=== PATIENT | female | born 1975 | race Caucasian/White ===

== ENCOUNTER 2024-07-06 11:41 | Emergency (ER) | payer OTHER, SELFPAY ==
[2024-07-06] MEDS ORDERED: diphenhydrAMINE 50 MG/ML VIAL ONE (12:11)
[2024-07-06] MEDS ORDERED: Ketorolac Tromethamine 30 MG (1 mL) VIAL ONE (12:12)
[2024-07-06] MEDS ORDERED: Sodium Chloride 0.9% 1,000 ML ONE (12:12)
[2024-07-06] MEDS ORDERED: Metoclopramide HCl 10 MG (2 mL) VIAL ONE (12:12)
[2024-07-06 12:31] LABS: Hematocrit 34.4 % (36.0-47.0); Hemoglobin 11.2 g/dL (12.0-16.0); Mean Corpuscular HGB CONC 32.5 g/dL (32.0-36.0); Mean Corpuscular Hemoglobin 29.9 pg (27.0-31.0); Mean Corpuscular Volume 92.1 fl (78.0-98.0); Platelet Count 162 10x3/uL (130-400); Red Blood Cell (RBC) Count 3.73 mill/uL (4.20-5.40); White Blood Cell (WBC) Count 5.9 10x3/uL (4.8-10.8)
[2024-07-06 12:32] LABS: Manual Diff?? YES
[2024-07-06 12:33] LABS: Band 1 % (5-11); Eosinophils 1 % (0-10); Lymphocytes 18 % (21-51); MDiff Complete? YES; Monocytes 9 % (0-10); Neutrophil 71 % (42-75); RBC Morph Comment Within Normal Limits
[2024-07-06 12:34] LABS: Platelet Adequacy Comment Appears Adequate
[2024-07-06 12:35] LABS: ALT (SGPT) 13 U/L (8-55); AST (SGOT) 16 U/L (5-34); Albumin 3.3 g/dL (3.5-5.0); Alkaline Phosphatase 62 U/L (40-110); Anion Gap 14 mmol/L (10-20); BUN (Urea Nitrogen) 14 mg/dL (7.0-18.7); Bilirubin, Total 0.7 mg/dL (0.2-1.2); Calc. Creatinine Clearance 0 mL/min (70-130); Calcium 8.5 mg/dL (7.8-10.44); Carbon Dioxide 24 mmol/L (22-29); Chloride 106 mmol/L (98-107); Estimated GFR 74; Globulin 2.6 g/dL (2.4-3.5); Glucose 89 mg/dL (70-105); Magnesium 1.7 mg/dL (1.6-2.6); Potassium 3.6 mmol/L (3.5-5.1); Protein, Total 5.9 g/dL (6.0-8.3); Sodium 140 mmol/L (136-145)
[2024-07-06 12:56] LABS: Bilirubin Negative (Negative); Blood, Urine Negative (Negative); Clarity Clear (Clear); Glucose, Urine (Dipstick) Negative (Negative); Ketone, Urine Negative (Negative); Leukocyte Negative (Negative); Nitrite Negative (Negative); Protein, Urine (Dipstick) Negative (Neg-Trace); Urobilinogen 0.2 mg/dL (Less than 2); pH, Urine 8.5 (5.0-9.0)
[2024-07-06 13:06] LABS: Bacteria/HPF 1+ HPF (None Seen); CAUTI Indications for Culture Dysuria,urgency,freq; RBC/HPF 0-3 HPF (0-3); WBC/HPF 0-3 HPF (0-3)
[2024-07-06 13:07] LABS: Urine Culture Reflex No No
[2024-07-06 13:11] LABS: Amphetamine Not Detected (NotDetected); Barbiturates Screen Not Detected (NotDetected); Benzodiazepine Screen Not Detected (NotDetected); Cocaine Metabolite Screen Not Detected (NotDetected); Methadone Not Detected (NotDetected); Methamphetamine Not Detected (NotDetected); Opiate Screen Not Detected (NotDetected); Oxycodone Screen Not Detected (NotDetected); Phencyclidine (PCP) Not Detected (NotDetected); THC/Cannabinoid Screen Detected (NotDetected); Tricyclic Screen Not Detected (NotDetected)
== END 2024-07-06 14:35 | disposition home or self-care (01) ==
LOC: MADERS 11:41
DX: M79.7 Fibromyalgia (principal); G43.909 Migraine, unspecified, not intractable, without status migrainosus
CPT/HCPCS: 36415; 70450; 80053; 80306; 81001; 83735; 85025; 94760; 96374; 96375; J1200; J1885; J2765; J7030